=== PATIENT | male | born 1955 | race Caucasian/White ===

== ENCOUNTER 2019-12-29 14:39 | Inpatient (IN) | payer OTHER ==
[~2019-12-29] VITALS: Ht 172.7 cm; Wt 96.7 kg
[2019-12-29] MEDS ORDERED: ASPIRIN 325 MG TABLET PO STA (14:42)
--- NOTE | 2019-12-29 14:42 | NUR ---
1440 code cardiac paged [id number] with dr collins
--- NOTE | 2019-12-29 14:43 | NUR ---
dr pond spoke with dr dorsey
[2019-12-29] MEDS: NITROGLYCERIN SINGLE TAB 0.4 MG SL PRN ×2 (14:49→14:55)
[2019-12-29] MEDS ORDERED: SIMV40TA20 PO (14:52)
[2019-12-29] MEDS ORDERED: LISI-170 PO (14:52)
--- NOTE | 2019-12-29 14:53 | NUR ---
PT REPORTS THAT TODAY AROUND 1400 PT STARTED HAVING LEFT SIDED CHEST PAIN 5/10 WITH SOB. PT HAS A HISTORY OF A OK X12 YEARS AGO. PT REPORTS IT FEELS THE SAME. PT HELPED OUT OF THE CAR AND STRAIGHT BACKED TO ROOM 5. EKG DONE. CODE CARDIAC CALLED. DR HARRINGTON HAS SEEN PATIENT. VS STABLE. SEARCH COORDINATOR ON. PT ALERT AND TALKING AT BEDSIDE. FAMILY AT BEDSIDE. CALL LIGHT IN PLACE. WILL CONTINUE TO MONITOR.
--- NOTE | 2019-12-29 14:53 | NUR ---
TECH IN ROOM DOING REPEAT EKG
[2019-12-29 14:55] LABS: BASOPHILS % (AUTO) 1 % (0-1); EOSINOPHILS % (AUTO) 3 % (1-7); LYMPHOCYTES % (AUTO) 14 % (22-44); MEAN CORPUSCULAR HEMOGLOBIN 26.6 pg (27.5-34.5); MEAN PLATELET VOLUME 8.7 fL (7.4-10.4); MONOCYTES % (AUTO) 7 % (2-9); NEUTROPHILS % (AUTO) 75 % (42-75); PLATELET COUNT 305 x10^3/uL (130-400); RED BLOOD COUNT 5.48 x10^6/uL (4.38-5.82); RED CELL DISTRIBUTION WIDTH 15.8 % (9.4-14.8)
[2019-12-29] MEDS ORDERED: MORPHINE SULFATE 4 MG/ML, 1ML IVPush ONE (15:00)
[2019-12-29] MEDS ORDERED: SODIUM CHLORIDE FLUSH 10ML SYR IVF ONE (15:00)
--- NOTE | 2019-12-29 15:01 | NUR ---
1/10 LEFT SIDED CHEST PAIN AFTER 2N NITRO. PT DOES NOT WANT MORPHINE AT THIS TIME.
[2019-12-29 15:03] LABS: MD NO
--- NOTE | 2019-12-29 15:05 | NUR ---
PT HAD 324 MG OF ASA HONE OPERATOR AT HOME
[2019-12-29 15:06] LABS: ALBUMIN 3.8 g/dL (3.4-5.0); ANION GAP 11 mmol/L (5-15); CALCIUM 10.3 mg/dL (8.5-10.1); CHLORIDE 108 mmol/L (98-107); CREATININE 1.39 mg/dL (0.7-1.3)
[2019-12-29] MEDS ORDERED: ROSUVASTATIN PO (15:08)
[2019-12-29 15:09] LABS: INTERNATIONAL NORMALIZED RATIO 0.99 (0.93-1.1); PROTHROMBIN TIME 10.2 Seconds (9.6-11.5)
[2019-12-29] MEDS ORDERED: NITROGLYCERIN 30 MCG/ML, 20ML VIAL ONE ×2 (15:09→15:16)
[2019-12-29 15:10] LABS: TROPONIN I < 0.015 ng/mL (0.000-0.045)
[2019-12-29] MEDS ORDERED: HEPARIN 1,000 UNITS/ML, 10ML ONE (15:16)
[2019-12-29] MEDS ORDERED: MIDAZOLAM 1 MG/ML, 2ML ONE (15:16)
[2019-12-29] MEDS ORDERED: LIDOCAINE 1%, 20ML ONE (15:16)
[2019-12-29] MEDS ORDERED: FENTANYL PF 100 MCG/2ML ONE (15:16)
[2019-12-29] MEDS ORDERED: BIVALIRUDIN 250 MG ONE ×2 (15:22→16:22)
--- NOTE | 2019-12-29 15:29 | NUR ---
BEDSIDE REPORT GIVEN TO TEXTILE SUPERVISOR
[2019-12-29] MEDS ORDERED: NITROGLYCERIN 0.4 MG BOTTLE (25 TABS) SL PRN (15:30)
[2019-12-29] MEDS ORDERED: ZOLPIDEM 5MG TABLET PO PRN (15:30)
[2019-12-29] MEDS ORDERED: NITROGLYCERIN 0.4 MG/SPRAY SL PRN (15:30)
[2019-12-29] MEDS ORDERED: morphine SULFATE 10 MG/ML, 1ML IVPush PRN (15:30)
[2019-12-29] MEDS ORDERED: ONDANSETRON 2MG/ML, 2ML IVPush PRN (15:30)
[2019-12-29] MEDS ORDERED: PRASUGREL 10 MG TABLET ONE (15:56)
[2019-12-29] MEDS ORDERED: ACETAMINOPHEN 325 MG TABLET PO PRN (16:30)
[2019-12-29 16:36] VITALS: BP 131/64
[2019-12-29] MEDS: SODIUM CHLORIDE 0.9% 1,000 ML IV SCH (16:49)
[2019-12-29] MEDS ORDERED: BIVALIRUDIN 250 MG in SODIUM CHLORIDE 0.9% 50 ML IV SCH (19:30)
[2019-12-29] MEDS: METOPROLOL TARTRATE 25 MG TAB PO SCH (21:10)
[2019-12-30] MEDS: SODIUM CHLORIDE 0.9% 1,000 ML IV SCH ×2 (00:30→08:11)
[2019-12-30 04:00] VITALS: BP 107/71
[2019-12-30 04:32] LABS: ANION GAP 5 mmol/L (5-15); CALCIUM 8.3 mg/dL (8.5-10.1); CHLORIDE 109 mmol/L (98-107); CREATININE 0.89 mg/dL (0.7-1.3)
[2019-12-30] MEDS ORDERED: LISINOPRIL 40 MG TABLET PO SCH ×2 (09:00→21:00)
[2019-12-30] MEDS ORDERED: ATORVASTATIN 40 MG TABLET PO SCH (09:00)
[2019-12-30] MEDS: METOPROLOL TARTRATE 25 MG TAB PO SCH ×2 (09:58→19:57)
[2019-12-30] MEDS: PRASUGREL 10 MG TABLET PO SCH (09:58)
[2019-12-30] MEDS: ASPIRIN 81 MG TABLET EC PO SCH (09:59)
[2019-12-30] MEDS ORDERED: FLU VACC QS2020-21(6MOS UP)/PF 60MCG/0.5 ML SYR IM-VACC ONE (13:30)
[2019-12-30 13:32] VITALS: BP 121/80
[2019-12-30 19:26] VITALS: BP 109/71
[2019-12-30] MEDS ORDERED: ATORVASTATIN 80 MG TABLET PO SCH (21:00)
[2019-12-31 02:11] VITALS: BP 106/71
[2019-12-31 07:18] VITALS: BP 113/80
[2019-12-31] MEDS ORDERED: PRAS10TA4 PO (08:43)
[2019-12-31] MEDS ORDERED: METO25TA2 PO (08:43)
[2019-12-31] MEDS ORDERED: ASPI81TA45 PO (08:43)
[2019-12-31] MEDS ORDERED: NITR0.4T28 SL (08:43)
[2019-12-31] MEDS: PRASUGREL 10 MG TABLET PO SCH (08:55)
[2019-12-31] MEDS: ASPIRIN 81 MG TABLET EC PO SCH (08:55)
[2019-12-31] MEDS: METOPROLOL TARTRATE 25 MG TAB PO SCH (08:56)
[2019-12-31] MEDS ORDERED: LISINOPRIL 40 MG TABLET PO SCH (09:00)
== END 2019-12-31 10:53 | disposition home or self-care (01) | DRG 247 ==
LOC: ED 15:48 → EDIP 16:17 → CCU 16:29 → 5SO 12-30 13:26 → DCLOUNGE 12-31 10:45
PROVIDERS: ADMIT Internal Medicine; ATTEND Internal Medicine
PROC: 027035Z Dilation of Coronary Artery, One Artery with Two Drug-eluting Intraluminal Devices, Percutaneous Approach (ICD-10-PCS; principal; 2019-12-29)
PROC: 4A023N7 Measurement of Cardiac Sampling and Pressure, Left Heart, Percutaneous Approach (ICD-10-PCS; 2019-12-29)
PROC: B2151ZZ Fluoroscopy of Left Heart using Low Osmolar Contrast (ICD-10-PCS; 2019-12-29)
PROC: B2111ZZ Fluoroscopy of Multiple Coronary Arteries using Low Osmolar Contrast (ICD-10-PCS; 2019-12-29)
PROC: B240ZZ3 Ultrasonography of Single Coronary Artery, Intravascular (ICD-10-PCS; 2019-12-29)
DX: I21.19 ST elevation (STEMI) myocardial infarction involving other coronary artery of inferior wall (principal); J81.1 Chronic pulmonary edema; N17.9 Acute kidney failure, unspecified; Z20.828 Contact with and (suspected) exposure to other viral communicable diseases; E78.00 Pure hypercholesterolemia, unspecified; E78.5 Hyperlipidemia, unspecified; I10 Essential (primary) hypertension; I25.10 Atherosclerotic heart disease of native coronary artery without angina pectoris; I25.2 Old myocardial infarction; Z82.49 Family history of ischemic heart disease and other diseases of the circulatory system; Z87.891 Personal history of nicotine dependence
CPT/HCPCS: 36415; 92978; 99285; C9600; J3490; 71045; 80047; 80048; 82040; 84484; 85025; 85610; 85730; 87081; 87635; 90686; 93005; 93306; 99156; 99157; C1753; C1760; C1769; C1894; G0378; J0583; J1644; J2250; J3010; C1725; C1874; C1887; J7030; Q9967